=== PATIENT | female | born 1980 | race Caucasian/White ===

== ENCOUNTER 2019-10-31 08:00 | Outpatient (CLI) | payer OTHER ==
[2019-10-31 21:17] LABS: TRICHOMONAS VAGINALIS DNA NEGATIVE (NEGATIVE)
== END 2019-10-31 23:59 | disposition home or self-care (01) ==
LOC: LAB.R 08:00
PROVIDERS: ATTEND Advanced Practice Midwife
DX: O09.529 Supervision of elderly multigravida, unspecified trimester (principal); Z3A.00 Weeks of gestation of pregnancy not specified
CPT/HCPCS: 87491; 87591; 87661; 87797

== ENCOUNTER 2019-12-02 09:50 | Inpatient (IN) | payer OTHER ==
[2019-12-02 10:38] LABS: RUPTURE OF MEMBRANES PLUS POSITIVE (NEGATIVE)
[2019-12-02] MEDS ORDERED: ONDANSETRON 4 MG/2 ML VIAL IVP PRN ×2 (11:03→19:04)
[2019-12-02] MEDS ORDERED: SODIUM CHLORIDE FLUSH 0.9% 10 ML SYRINGE IVP PRN (11:03)
[2019-12-02 12:28] LABS: BASOPHILS % (AUTO) 0.4 %; EOSINOPHILS # (AUTO) 0.1 10^3/uL (0.0-0.7); EOSINOPHILS % (AUTO) 0.7 %; HGB - HEMOGLOBIN 12.9 g/dL (12.0-16.0); LYMPHOCYTES # (AUTO) 1.7 10^3/uL (1.5-3.5); LYMPHOCYTES % (AUTO) 16.8 %; MEAN CORPUSCULAR HEMOGLOBIN 32.3 pg (27.0-31.0); MEAN CORPUSCULAR HGB CONC 33.7 g/dL (32.0-36.0); MEAN PLATELET VOLUME 9.9 fL (7.9-10.8); MONOCYTES # (AUTO) 0.7 10^3/uL (0.0-1.0); MONOCYTES % (AUTO) 6.7 %; NEUTROPHILS # (AUTO) 7.5 10^3/uL (1.5-6.6); NEUTROPHILS % (AUTO) 74.3 %; PLT - PLATELET COUNT 223 10^3/uL (130-450); RED BLOOD COUNT 3.99 10^6/uL (4.20-5.40); RED CELL DISTRIBUTION WIDTH 12.4 % (12.0-15.0); WHITE BLOOD COUNT 10.1 x10^3/uL (4.8-10.8)
--- NOTE | 2019-12-02 12:37 | PREOP HISTORY & PHYSICAL ---
DATE OF SERVICE: 12/02/2019 Physician: Beto Rivas MD IDENTIFICATION: The patient is a 39-year-old G3, P2 female whose EDC is 11/30/2019. This makes her 40 weeks and 2 days. CHIEF COMPLAINT: Vaginal fluid leak. HISTORY OF PRESENT ILLNESS: At 8 o'clock this morning, she developed a vaginal fluid leak, which ran down her legs. She presents for possibly rupture of membranes. She has been having contractions off and on over the last 3 or 4 days. These have come and then resolved. She notes good motion at this time. OBSTETRICAL HISTORY: Remarkable for some blood pressure elevations with her first child. However, she denies a history of preeclampsia. During this , because of the COVID virus, she was very anxious about doing her 50 gram Glucola and thus did not do this. She did do blood sugar tests at home, which she reports and reported on the chart as her fastings being normal, as well as 1-hour postprandials being in the 120s. Her blood pressures have all been within normal limits during this . LABORATORIES: The patient is noted to be A negative. Her is B negative. She is rubella immune. Her STI checks have all been negative. She is group B strep negative at this time. PAST MEDICAL HISTORY: Negative. PAST SURGICAL HISTORY: [place] teeth. ALLERGIES: NONE KNOWN. CURRENT MEDICATIONS 1. vitamins. 2. Iron. 3. Folic acid. HABITS: The patient denies use of alcohol, tobacco, street or addictive drugs. SOCIAL HISTORY: The patient is . She is a middle school spanish teacher, as well as her . She has currently been homebound with her family because of self- quarantine with the COVID virus. PHYSICAL EXAMINATION GENERAL: The patient is a well-developed, well-nourished, white female. She is somewhat anxious at this time. VITAL SIGNS: On admission, her blood pressure is 140/98, heart rate is 115, temperature is 37, and her respirations are 20, with 100% oxygenation. HEENT: Pupils are equal and round. Extraocular muscles are intact. Mouth is clear. Thyroid is not palpably enlarged. HEART: Regular rate and rhythm without murmurs. LUNGS: Lung elder are clear without rales or wheezes. BACK: No spinal or CVA tenderness. The patient is noted to have a history of being scoliotic. ABDOMEN: Gravid, measuring roughly 38 cm at this time. She has a nice reactive strip at this time. PELVIC: Done by the nurse showed her to be Nitrazine equivocal, but her FFN is positive. Her cervical examination was noted to be closed and long. DTRs are +1. IMPRESSION: A 39-year-old G3, P2 female at 40.2 weeks. She has spontaneously ruptured. Repeat BP was normal. PLAN: I have discussed the issues with cervical ripening. If labor does not ensue within the next hour, we will utilize Cervidil for cervical ripening. We will place an epidural as necessary. She does have a history of having a rapid labors. [facility] Labs were drawn. TD: 12/02/2019 12:04 JONATHAN
[2019-12-02 12:49] LABS: URIC ACID 3.8 mg/dL (2.6-7.2)
[2019-12-02 12:51] LABS: CREATININE,URINE 23.8 mg/dL; PROTEIN/CREATININE RATIO,URINE 1.6 (<=0.2)
[2019-12-02 12:53] LABS: CALCIUM 8.8 mg/dL (8.5-10.3); CREATININE 0.6 mg/dL (0.4-1.0)
[2019-12-02] MEDS ORDERED: miSOPROStoL 100 MCG TABLET BC PRN (14:00)
[2019-12-02] MEDS ORDERED: miSOPROStoL 100 MCG TABLET ONE (14:06)
--- NOTE | 2019-12-02 15:56 | PROVIDER PROGRESS NOTE ---
Labor Progress Note - Uterine Monitoring Uterine Monitoring Mode: positive: External toco Contraction Frequency (min/apart): irreguler Contraction Intensity: positive: Mild - Monitoring Monitor Mode: positive: External ultrasound Heart Rate Variability: positive: Moderate (6-25 bmp) Accelerations: positive: Present, 15x15 Decelerations: positive: None Strip Review: positive: Category I - Vaginal Exam Dilation (in cm): posterior Station: Ballotable - Labor Progress Note Labor Progress Note/Additional Text: may need repeat misioprostal
[2019-12-02] MEDS ORDERED: SODIUM CHLORIDE FLUSH 0.9% 10 ML SYRINGE IVP SCH (17:00)
[2019-12-02] MEDS: LACTATED RINGERS 1,000 ML IV SCH ×2 (17:30→21:59)
[2019-12-02] MEDS ORDERED: fentaNYL 100 MCG/2 ML VIAL IVP PRN (17:42)
[2019-12-02] MEDS ORDERED: ROPIVACAINE 0.2% 200 MG/100 ML BAG EP ONE (18:11)
--- NOTE | 2019-12-02 18:12 | ANESTHESIA ---
Pre-Anesthesia VS, & Labs - Diagnosis Active labor - Procedure vaginal delivery Vital Signs: Temp Pulse Resp BP Pulse Ox 37.2 C 115 H 20 140/98 H 100 12/02/19 11:07 12/02/19 10:00 12/02/19 10:00 12/02/19 10:00 12/02/19 10:00 Height 5 ft 9.5 in Weight (kg) 88.9 kg - NPO Other (Labor) - Is Patient ?: Yes - Lab Results Current Lab Results: Laboratory Tests 12/02/19 12:02: Sodium 132 L, Potassium 3.6, Chloride 100 L, Carbon Dioxide 22, Anion Gap 10.0, BUN 11, Creatinine 0.6, Estimated GFR (MDRD) 111, Glucose 116 H, Calcium 8.8 12/02/19 12:02: Uric Acid 3.8, AST 20 12/02/19 12:02: Lactate Dehydrogenase 123 12/02/19 12:02: WBC 10.1, RBC 3.99 L, Hgb 12.9, Hct 38.3, MCV 96.0, MCH 32.3 H, MCHC 33.7, RDW 12.4, Plt Count 223, MPV 9.9, Neut # (Auto) 7.5 H, Lymph # (Auto) 1.7, [place] # (Auto) 0.7, Eos # (Auto) 0.1, Baso # (Auto) 0.0, Absolute Nucleated RBC 0.00, Nucleated RBC % 0.0 Fish Bones: 12/02/19 12:02 12/02/19 12:02 Home Medications and Allergies Active Medications Fentanyl (Fentanyl) 50 mcg IVP Q1H PRN PRN Reason: PAIN Last Admin: 12/02/19 17:49 Dose: 50 mcg Lactated Ringer's (Lr) 1,000 mls @ 150 mls/hr IV .Q6H40M CHIKIS Misoprostol (Cytotec) 25 mcg BC Q4H PRN PRN Reason: NEEDED PER PROVIDER ORDERS Stop: 12/03/19 13:59 Last Admin: 12/02/19 14:11 Dose: 25 mcg Ondansetron HCl (Zofran Inj) 4 mg IVP Q4H PRN PRN Reason: Nausea / Vomiting Last Admin: 12/02/19 15:46 Dose: 4 mg Sodium Chloride (Normal Saline Flush 0.9%) 10 ml IVP PRN PRN PRN Reason: NEEDED PER PROVIDER ORDERS Sodium Chloride (Normal Saline Flush 0.9%) 10 ml IVP 0100,0900,1700 CHIKIS PNV Allergies/Adverse Reactions: Allergies Allergy/AdvReac Type Severity Reaction Status Date / Time No Known Drug Allergies Allergy Verified 12/02/19 11:10 Anes History & Medical History - Anesthetic History Family history of Anesthesia Complications: Denies Family history of Malignant Hyperthermia: Denies - Medical History Cardiovascular: reports: None Pulmonary: reports: None Gastrointestinal: reports: GERD (during ) Urinary: reports: None Neuro: reports: None Musculoskeletal: reports: Scoliosis Endocrine/Autoimmune: reports: None Blood Disorders: reports: None Smoking Status: Never smoker Psychosocial: reports: Anxiety Exam General: Alert, Oriented x3, Cooperative, No acute distress Dental: WNL Mouth Openin Fingerbreadth Neck Mobility: Normal Mallampati classification: III Thyromental Distance: 4-6 cm Mental/Cognitive Status: Alert/Oriented X3, Normal for patient Plan Anesthesia Type: Epidural Consent for Procedure(s) Verified and Reviewed: Yes Code Status: Attempt Resuscitation ASA classification: 2-Mild systemic disease Is this case an emergency?: No
[2019-12-02] MEDS ORDERED: NALBUPHINE 10 MG/ML AMP IVP PRN (19:04)
[2019-12-02] MEDS ORDERED: NALOXONE 0.4 MG/ML VIAL IVP PRN (19:04)
[2019-12-02] MEDS ORDERED: ePHEDrine 50 MG/ML VIAL IVP PRN (19:04)
[2019-12-02] MEDS ORDERED: ROPIVACAINE 0.2% 200 MG/100 ML BAG EP PRN (19:04)
[2019-12-02] MEDS ORDERED: OXYTOCIN/SODIUM CHLORIDE 500 ML IV ONE (21:50)
--- NOTE | 2019-12-02 22:43 | PROVIDER PROGRESS NOTE ---
Labor Progress Note - Uterine Monitoring Contraction Frequency (min/apart): 2-3 min Contraction Intensity: positive: Moderate to strong - Monitoring Monitor Mode: positive: External ultrasound Heart Rate Baseline: 140 Heart Rate Variability: positive: Moderate (6-25 bmp) Accelerations: positive: Present, 15x15 Decelerations: positive: None Strip Review: positive: Category I - Vaginal Exam Dilation (in cm): 4 Effacement (%): 80% Station: -3 Cervical Position: Posterior - Labor Progress Note Labor Progress Note/Additional Text: pt is very anxious. slow progress. 14 hours ruptured. Start pitocin
[2019-12-02] MEDS ORDERED: OXYTOCIN/SODIUM CHLORIDE 500 ML IV SCH (23:00)
[2019-12-02] MEDS ORDERED: fentaNYL 100 MCG/2 ML VIAL ONE (23:17)
[2019-12-02] MEDS ORDERED: SODIUM CHLORIDE 0.9% 10 ML ONE (23:17)
--- NOTE | 2019-12-02 23:32 | ANESTHESIA PROCEDURE NOTE ---
Anesthesia Epidural Template - Patient Report Patient Reports: positive: Other (patient reports pain with contractions in her vagina. Pain is controlled everywhere else.) - Other Comments Other Comments: Epidural dosed with 100mcg fentanyl with 8ml of PFNS. After bolus, patient was checked and 9.5cm. Patient reports improvement of pain, but increased pressure.
[2019-12-02] MEDS ORDERED: LIDOCAINE-MPF 1% 30 ML VIAL ONE (23:57)
[2019-12-03] MEDS ORDERED: ONDANSETRON ODT 4 MG TABLET TL PRN (00:27)
[2019-12-03] MEDS ORDERED: WITCH HAZEL/GLYCERIN 1 PAD TOP PRN (00:27)
[2019-12-03] MEDS ORDERED: HYDROCORTISONE 1% CREAM 28 GM TUBE PR PRN (00:27)
[2019-12-03] MEDS ORDERED: diphenhydrAMINE 25 MG CAPSULE PO PRN (00:27)
--- NOTE | 2019-12-03 00:32 | DELIVERY NOTE ---
Delivery Note - Labor Labor: positive: Other (Misoprosto 25 microgramsl) - Delivery Method Delivery Method: positive: Spontaneous vaginal delivery - Cervical Ripening Method Cervical Ripening Method: positive: Misoprostil - Presentation Presentation: positive: Vertex, Compound (right hand), SONALI - left occiput anterior - Nuchal Cord Nuchal Cord: positive: None - Anesthetic Anesthetic Type: Anesthetic: positive: Lidocaine - 1% plain Volume: positive: Other (9 ml) - Amniotic Fluid Description Amniotic Fluid Description: positive: Clear - Episiotomy Type Episiotomy Type: positive: None - Laceration Laceration: positive: 2nd degree, Perineal - Suture Suture Type: positive: Vicryl Suture Size: positive: 3-0 - Delivery Outcome Delivery Outcome: positive: Livebirth (female apgars 8/9) - [place] : positive: Placed in direct skin contact with mother, Bulb syringe, Stimulated sex: positive: Female - Cord Cord: positive: 3 vessels - Placenta Placenta: positive: Intact, Spontaneous - Estimated Blood Loss Estimated Blood Loss (in cc): 200 - Post Delivery Events Post Delivery Events: positive: No post delivery events - Delivery Comments (Free Text/Narrative) Delivery Comments (Free Text/Narrative): Patient presented to labor and delivery about 10:00 this morning with a history of having noticed fluid leak at 8. This is clear. Upon examination she was noted to have minimal fluid in the vagina however this was ROM plus positive. With time the rupture became more more obvious. She was somewhat apprehensive. Because her cervix was unfavorable felt to be long closed and very posterior she received 25 mcg of misoprostol. She developed contractions which becoming more and more painful with time. She requested an epidural which was placed with excellent results. She reached complete at 2330 and following a 19-minute second stage she delivered at 2349 a live female Apgars 8/9 left occiput anterior with a right hand component. The placenta soon followed at 2355 was inspected and felt to be intact at time of delivery she suffered a second-degree perineal laceration. This repaired with 3-0 Vicryl in the standard fashion. Both mother and infant tolerated delivery well. Estimated blood loss was 200 cc.
[2019-12-03] MEDS ORDERED: LACTATED RINGERS 1,000 ML IV SCH (01:00)
[2019-12-03] MEDS ORDERED: SIMETHICONE CHEW 80 MG TABLET PO SCH (06:00)
[2019-12-03] MEDS: ACETAMINOPHEN 500 MG TABLET PO SCH ×3 (06:41→23:56)
[2019-12-03] MEDS: IBUPROFEN 600 MG TABLET PO SCH ×2 (06:42→12:39)
[2019-12-03] MEDS ORDERED: SODIUM CHLORIDE 0.9% 500 ML ONE (07:46)
[2019-12-03] MEDS: oxyCODONE 5 MG TABLET PO PRN ×3 (09:47→23:57)
[2019-12-03] MEDS: DOCUSATE SODIUM 100 MG CAPSULE PO SCH (09:47)
--- NOTE | 2019-12-03 11:15 | PROVIDER PROGRESS NOTE ---
Subjective - Prog Note Date Prog Note Date: 12/03/19 Prog Note Time: 11:12 - Subjective Pt reports feeling: Improved (Pain 07/07. breast feeding.) Objective - Vital Signs/Intake & Output Reviewed Vital Signs: Yes Vital Signs: Vital Signs x48h Temp Pulse Resp BP 12/03/19 09:30 36.9 C 103 H 18 129/84 H Intake & Output: Intake & Output 11/30/19 12/01/19 12/02/19 12/03/19 23:59 23:59 23:59 23:59 Intake Total 672.5 1750 Output Total 1550 Balance 672.5 200 - Objective General Appearance: positive: No acute distress, Alert Abdomen: positive: Non-tender, Mass (U-1) Extremities: negative: Calf tenderness, Radha's sign/cords Neurologic/Psychiatric: positive: Oriented x3 - Lab Results Fish Bones: 12/02/19 12:02 12/02/19 12:02 Other Labs: Lab Results x24hrs 12/02/19 12/02/19 12/02/19 Range/Units 12:02 12:02 12:02 WBC (4.8-10.8) x10^3/uL RBC (4.20-5.40) 10^6/uL Hgb (12.0-16.0) g/dL Hct (37.0-47.0) % MCV (81.0-99.0) fL MCH (27.0-31.0) pg MCHC (32.0-36.0) g/dL RDW (12.0-15.0) % Plt Count (130-450) 10^3/uL MPV (7.9-10.8) fL Neut # (Auto) (1.5-6.6) 10^3/uL Lymph # (Auto) (1.5-3.5) 10^3/uL [place] # (Auto) (0.0-1.0) 10^3/uL Eos # (Auto) (0.0-0.7) 10^3/uL Baso # (Auto) (0.0-0.1) 10^3/uL Absolute Nucleated RBC x10^3/uL Nucleated RBC % /100WBC Sodium 132 L (135-145) mmol/L Potassium 3.6 (3.5-5.0) mmol/L Chloride 100 L (101-111) mmol/L Carbon Dioxide 22 (21-32) mmol/L Anion Gap 10.0 (6-13) BUN 11 (6-20) mg/dL Creatinine 0.6 (0.4-1.0) mg/dL Estimated GFR (MDRD) 111 (>89) Glucose 116 H (70-100) mg/dL Uric Acid 3.8 (2.6-7.2) mg/dL Calcium 8.8 (8.5-10.3) mg/dL AST 20 (10-42) IU/L Lactate Dehydrogenase (91-225) IU/L Urine Creatinine 23.8 mg/dL Ur Total Protein Timed 38 mg/dL Protein/Creatinin Ratio 1.6 H (<=0.2) 12/02/19 12/02/19 Range/Units 12:02 12:02 WBC 10.1 (4.8-10.8) x10^3/uL RBC 3.99 L (4.20-5.40) 10^6/uL Hgb 12.9 (12.0-16.0) g/dL Hct 38.3 (37.0-47.0) % MCV 96.0 (81.0-99.0) fL MCH 32.3 H (27.0-31.0) pg MCHC 33.7 (32.0-36.0) g/dL RDW 12.4 (12.0-15.0) % Plt Count 223 (130-450) 10^3/uL MPV 9.9 (7.9-10.8) fL Neut # (Auto) 7.5 H (1.5-6.6) 10^3/uL Lymph # (Auto) 1.7 (1.5-3.5) 10^3/uL Cross # (Auto) 0.7 (0.0-1.0) 10^3/uL Eos # (Auto) 0.1 (0.0-0.7) 10^3/uL Baso # (Auto) 0.0 (0.0-0.1) 10^3/uL Absolute Nucleated RBC 0.00 x10^3/uL Nucleated RBC % 0.0 /100WBC Sodium (135-145) mmol/L Potassium (3.5-5.0) mmol/L Chloride (101-111) mmol/L Carbon Dioxide (21-32) mmol/L Anion Gap (6-13) BUN (6-20) mg/dL Creatinine (0.4-1.0) mg/dL Estimated GFR (MDRD) (>89) Glucose (70-100) mg/dL Uric Acid (2.6-7.2) mg/dL Calcium (8.5-10.3) mg/dL AST (10-42) IU/L Lactate Dehydrogenase 123 (91-225) IU/L Urine Creatinine mg/dL Ur Total Protein Timed mg/dL Protein/Creatinin Ratio (<=0.2) Assessment/Plan - Problem List (1) (spontaneous vaginal delivery) Impression: excellent progress. late delivery.
[2019-12-04 05:52] LABS: BASOPHILS # (AUTO) 0.1 10^3/uL (0.0-0.1); BASOPHILS % (AUTO) 0.4 %; EOSINOPHILS # (AUTO) 0.3 10^3/uL (0.0-0.7); EOSINOPHILS % (AUTO) 2.7 %; HGB - HEMOGLOBIN 11.5 g/dL (12.0-16.0); LYMPHOCYTES # (AUTO) 2.8 10^3/uL (1.5-3.5); LYMPHOCYTES % (AUTO) 21.6 %; MEAN CORPUSCULAR HEMOGLOBIN 32.7 pg (27.0-31.0); MEAN CORPUSCULAR HGB CONC 33.6 g/dL (32.0-36.0); MEAN CORPUSCULAR VOLUME 97.2 fL (81.0-99.0); MEAN PLATELET VOLUME 9.4 fL (7.9-10.8); MONOCYTES # (AUTO) 1.1 10^3/uL (0.0-1.0); MONOCYTES % (AUTO) 8.6 %; NEUTROPHILS # (AUTO) 8.4 10^3/uL (1.5-6.6); NEUTROPHILS % (AUTO) 65.8 %; PLT - PLATELET COUNT 204 10^3/uL (130-450); RED BLOOD COUNT 3.52 10^6/uL (4.20-5.40); RED CELL DISTRIBUTION WIDTH 12.7 % (12.0-15.0); WHITE BLOOD COUNT 12.8 x10^3/uL (4.8-10.8)
[2019-12-04 06:02] LABS: CREATININE 0.5 mg/dL (0.4-1.0); URIC ACID 4.2 mg/dL (2.6-7.2)
[2019-12-04 06:11] LABS: CREATININE,URINE 18.2 mg/dL; PROTEIN/CREATININE RATIO,URINE 0.6 (<=0.2)
[2019-12-04] MEDS: DOCUSATE SODIUM 100 MG CAPSULE PO SCH ×2 (07:41→09:58)
[2019-12-04] MEDS: ACETAMINOPHEN 500 MG TABLET PO SCH ×2 (07:42→09:58)
[2019-12-04] MEDS: oxyCODONE 5 MG TABLET PO PRN (07:42)
[2019-12-04 08:28] VITALS: BP 138/76
--- NOTE | 2019-12-04 10:19 | PROVIDER PROGRESS NOTE ---
Subjective - Prog Note Date Prog Note Date: 12/04/19 Prog Note Time: 10:17 - Subjective Pt reports feeling: Improved (Pt had RESENDIZ last PM resolved with tylenol and hyration. Pt feels well today. notes edemal resolving. Breast feeding. baby with increased bili.) Objective - Vital Signs/Intake & Output Reviewed Vital Signs: Yes Vital Signs: Vital Signs x48h Temp Pulse Resp BP Pulse Ox 12/04/19 08:27 36.6 C 102 H 19 138/76 H 98 12/04/19 05:24 36.9 C 81 16 147/89 H 99 Intake & Output: Intake & Output 12/01/19 12/02/19 12/03/19 12/04/19 23:59 23:59 23:59 23:59 Intake Total 672.5 1750 Output Total 1550 Balance 672.5 200 - Objective General Appearance: positive: No acute distress, Alert Respiratory: positive: Chest non-tender, No respiratory distress, Breath sounds nml Cardiovascular: positive: Regular rate & rhythm, No murmur, No gallop Abdomen: positive: Non-tender, Mass (U-2) Extremities: negative: No pedal edema, Calf tenderness, Radha's sign/cords - Lab Results Fish Bones: 12/04/19 05:44 12/04/19 05:44 Other Labs: Lab Results x24hrs 12/04/19 12/04/19 12/04/19 Range/Units 05:55 05:44 05:44 WBC (4.8-10.8) x10^3/uL RBC (4.20-5.40) 10^6/uL Hgb (12.0-16.0) g/dL Hct (37.0-47.0) % MCV (81.0-99.0) fL MCH (27.0-31.0) pg MCHC (32.0-36.0) g/dL RDW (12.0-15.0) % Plt Count (130-450) 10^3/uL MPV (7.9-10.8) fL Neut # (Auto) (1.5-6.6) 10^3/uL Lymph # (Auto) (1.5-3.5) 10^3/uL [place] # (Auto) (0.0-1.0) 10^3/uL Eos # (Auto) (0.0-0.7) 10^3/uL Baso # (Auto) (0.0-0.1) 10^3/uL Absolute Nucleated RBC x10^3/uL Nucleated RBC % /100WBC Fibrinogen 592 H (220-496) mg/dL Creatinine 0.5 (0.4-1.0) mg/dL Estimated GFR (MDRD) 137 (>89) Uric Acid 4.2 (2.6-7.2) mg/dL AST 27 (10-42) IU/L ALT 17 (10-60) IU/L Lactate Dehydrogenase (91-225) IU/L Urine Creatinine 18.2 mg/dL Ur Total Protein Timed 11 mg/dL Protein/Creatinin Ratio 0.6 H (<=0.2) 12/04/19 12/04/19 Range/Units 05:44 05:44 WBC 12.8 H (4.8-10.8) x10^3/uL RBC 3.52 L (4.20-5.40) 10^6/uL Hgb 11.5 L (12.0-16.0) g/dL Hct 34.2 L (37.0-47.0) % MCV 97.2 (81.0-99.0) fL MCH 32.7 H (27.0-31.0) pg MCHC 33.6 (32.0-36.0) g/dL RDW 12.7 (12.0-15.0) % Plt Count 204 (130-450) 10^3/uL MPV 9.4 (7.9-10.8) fL Neut # (Auto) 8.4 H (1.5-6.6) 10^3/uL Lymph # (Auto) 2.8 (1.5-3.5) 10^3/uL [place] # (Auto) 1.1 H (0.0-1.0) 10^3/uL Eos # (Auto) 0.3 (0.0-0.7) 10^3/uL Baso # (Auto) 0.1 (0.0-0.1) 10^3/uL Absolute Nucleated RBC 0.00 x10^3/uL Nucleated RBC % 0.0 /100WBC Fibrinogen (220-496) mg/dL Creatinine (0.4-1.0) mg/dL Estimated GFR (MDRD) (>89) Uric Acid (2.6-7.2) mg/dL AST (10-42) IU/L ALT (10-60) IU/L Lactate Dehydrogenase 218 (91-225) IU/L Urine Creatinine mg/dL Ur Total Protein Timed mg/dL Protein/Creatinin Ratio (<=0.2) Assessment/Plan - Problem List (1) (spontaneous vaginal delivery) Impression: 1. PPD #2 excellent progress 2. Possible mild PreE BP not treatable at this time. P/C ratio improving. Pt is very anxious difficult taking BP with automatic cuff. Plan home but MUST take BP at home and record. come back tomorrow and bring record of home BP with her. Discharge Medications: Oxycodone 5 mg # 5 Colace 100 mg OTC Tylenol OTC. STOP Motrin. BP check tomorrow adn phone visit one week. Condoms adn vasectomy.
--- NOTE | 2019-12-04 13:45 | Labor Flowsheet ---
Labor Flowsheet Datetime Report Generated by CPN: 12/04/2019 13:45 Datetime: 12/04/2019 05:17 VITAL SIGNS NBP Sys/Sumi/Mean (mmHg): 147 : 89 : 104 Pulse: 102 Datetime: 12/03/2019 18:14 SpO2 (%): 99 Datetime: 12/02/2019 23:50 Stage of : Recovery Datetime: 12/02/2019 23:49 Membranes Ruptured Date/Time: 12/02/2019 08:00 Membranes Rupture Method: Spontaneous Amniotic Fluid Color: Clear Amniotic Fluid Amount: Small Amniotic Fluid Odor: Normal Stage 2 Comments: Head delivered Datetime: 12/02/2019 23:48 STAGE 2 Pushing: Urge to Push Pushing Position: Pushing with Contractions Datetime: 12/02/2019 23:46 FHR Baseline Rate : 140 Decelerations: Variable Datetime: 12/02/2019 23:45 Comments: up in stirrups Datetime: 12/02/2019 23:40 Communication Comments: Dr. Giem here Datetime: 12/02/2019 23:30 LaborFlag: Labor Datetime: 12/02/2019 23:22 VAGINAL EXAM Dilatation (cm): 9.5 Station: 2 Exam by: Ritchie COMMUNICATION Communication: Call/Page Placed to Provider Provider Notified (Name): DrJose Ramon Giem Notification Reason: Status Update Datetime: 12/02/2019 23:00 UTERINE ACTIVITY Monitor Mode: External Frequency (min): 2 Quality: Strong Duration (sec): 40 Resting Tone (Palpate): Relaxed ASSESSMENT A Monitor Mode: External US Variability: Moderate 6-25 bpm Category: Category I Oxygen Method: Room Air Anesthesia Level Check: T10- Umbilicus Anesthesia Comments: Anesthesia present for pain control Datetime: 12/02/2019 22:52 Monitor Interventions for UA: [place] Adjusted Monitor Interventions for FHR: Ultrasound Adjusted Patient Position/Activity: Left Lateral Datetime: 12/02/2019 22:45 PAIN Pain Scale: 8 Pain Presence: Intermittent Pain Type: Contraction Pain Location: Abdomen Pain Goal: 2 Pain Relief Measures: Epidural Given Datetime: 12/02/2019 22:39 Effacement (%): 80 Vaginal Bleeding: None Cervix, Consistency: Soft Cervix, Position: Midposition Datetime: 12/02/2019 22:17 Provider Reviewed Strip: Yes Datetime: 12/02/2019 22:00 Accelerations: 15X15 Datetime: 12/02/2019 21:30 FHR Baseline Changes: No Baseline Change Datetime: 12/02/2019 20:30 Temperature (C): 36.8 Datetime: 12/02/2019 19:59 Pattern: Normal: <= 5 Contractions in 10 Minutes MATERNAL ASSESSMENT Level of Consciousness: Alert DTR's/Clonus: DTRs 2+; No Clonus Headache: Denies Nausea/Vomiting: Denies RUQ Epigastric Pain: Denies TEACHING Instructional Method: Verbal Plan of Care: Plan of Care Discussed Related: Maternal Physical Changes; Maternal Emotional Changes Datetime: 12/02/2019 19:10 I/O Interventions: Bedpan Given Datetime: 12/02/2019 19:01 Epidural Procedure Other: Pump Started Datetime: 12/02/2019 18:54 ANESTHESIA Anesthesia Plans: Epidural Epidural Procedure: Test Dose Datetime: 12/02/2019 18:36 PROCEDURE TIME OUT Procedure Type: 1835 Procedure Verify: Correct Patient Identity; Correct Side and Site are Marked; Accurate Procedure Co nsent Form; Agreement on Procedure to be Done; Correct Patient Position; Safety Precautions Based on Patient History or Medication Use Epidural Positioning: Sitting Datetime: 12/02/2019 17:49 MEDICATIONS Analgesics/Sedatives: Fentanyl (mcg) @ 50 Datetime: 12/02/2019 17:29 PATIENT CARE IV/Blood Work: IV Bolus Started; IV Bolus Given ml @ 500 Datetime: 12/02/2019 17:15 Contraction Comments: patient states ctx's stronger and feels more regular, considering epidural so on Datetime: 12/02/2019 15:10 Vaginal Exam Comments: ballotable, unable to reach cervix, pt very tense during exam. Datetime: 12/02/2019 14:11 Cervical Ripening Agents: Cytotec @
--- NOTE | 2019-12-06 17:37 | DISCHARGE SUMMARY ---
Physician: Beto Rivas MD DATE OF ADMISSION: 12/02/2019 DATE OF DISCHARGE: 12/04/2019 ADMITTING DIAGNOSES: 1. 40 weeks and 2 days gestation. 2. Mild preeclampsia. 3. Spontaneous rupture of membranes. DISCHARGE DIAGNOSES: 1. 40 weeks and 2 days gestation. 2. Mild preeclampsia. 3. Spontaneous rupture of membranes. PROCEDURES: 1. Cervical ripening with misoprostol. 2. Epidural anesthesia. 3. Spontaneous vaginal delivery. 4. Repair of second-degree laceration. PRESENTING HISTORY: Patient is a 40-year-old G3, P2 female whose due date was 11/30/2019. She presented at 40 weeks and 2 days. At time of admission, she came to labor and delivery and complained of leaking fluid down her leg, but no fluid was noted in the vagina; however, a ROM Plus was positive for rupture of membranes, and throughout time, her ruptured membranes became more obvious. Her history was that of anxiety secondary to coronavirus and therefore was not seen in the clinic for the last month or so. She did her own blood pressure monitoring as well as sugar testing. She declined coming in and having a 50 gram Glucola and thus was given a glucometer to check her blood sugars. She reported these as normal, but was unable to give actual numbers. On admission, her examination showed her cervix to be Nitrazine equivocal. The cervix was long and closed. LABORATORIES: Because of an admission elevated blood pressure, she had PAH labs drawn. Her white count on admission was 10.1, hemoglobin was 12.9, platelets were 223. Her glucose was 116. Her protein creatinine was 1.6. However, this was contaminated with amniotic fluid. Uric acid was 3.8 and creatinine of 0.6. ROM Plus was positive. On the , she had repeat labs drawn. Because of some blood pressures running occasionally 140s/80s. Her platelets had remained stable at 204. Her creatinine was 0.5. Her uric acid was 4.2. Her protein creatinine ratio had fallen to 0.6. HOSPITAL COURSE: The patient admitted. Declined early active management. So at roughly noon, it was decided to use misoprostol all for cervical ripening 25 mg used buccally as we were concerned about hyperstimulation. She progressed to roughly 4 cm, had an epidural placed. The plan was to start Pitocin; however, she went rapidly from 4 cm to complete. She pushed through 2 contractions at which time she delivered a live female infant, Apgars 8 and 9. At time of delivery, there was a right hand compound presentation. She suffered a second- degree laceration, which was repaired. , she did well. She had problems with a headache, which responded to Tylenol and fluids. Her vital signs, systolics ranged from 134-147. Diastolics never exceeded 90. She was discharged home with instructions to followup the following day for blood pressure check when she brought her in. She was told this was very important. She was to take her own home medication of Motrin, Tylenol and Colace. We discussed the issues of contraception. Her is supposed to get a vasectomy. In the meantime, she was told that is not adequate contraception. TD: 12/06/2019 16:30 JONATHAN
== END 2019-12-04 13:00 | disposition home or self-care (01) | DRG 807 ==
LOC: WFO 09:50 → FBP 09:57 → WFO 11:02 → FBP 11:03
PROVIDERS: ADMIT Obstetrics & Gynecology; ATTEND Obstetrics & Gynecology
PROC: 10E0XZZ Delivery of Products of Conception, External Approach (ICD-10-PCS; principal; 2019-12-02)
PROC: 0KQM0ZZ Repair Perineum Muscle, Open Approach (ICD-10-PCS; 2019-12-02)
DX: O14.04 Mild to moderate pre-eclampsia, complicating childbirth (principal); Z37.0 Single live birth; O70.1 Second degree perineal laceration during delivery; O32.6XX0 Maternal care for compound presentation, not applicable or unspecified; O42.02 Full-term premature rupture of membranes, onset of labor within 24 hours of rupture; O90.89 Other complications of the puerperium, not elsewhere classified; R51 Headache; Z3A.40 40 weeks gestation of pregnancy
CPT/HCPCS: 36415; 80048; 82565; 82570; 83615; 84112; 84156; 84450; 84460; 84550; 85025; 85384; 99212; A9270; J7120; 88307

== ENCOUNTER 2019-12-05 16:23 | Outpatient (CLI) | payer OTHER ==
[2019-12-05 17:31] VITALS: BP 141/75
--- NOTE | 2019-12-05 18:02 | Labor Flowsheet ---
Labor Flowsheet Datetime Report Generated by CPN: 12/05/2019 18:02 Datetime: 12/05/2019 17:28 VITAL SIGNS NBP Sys/Sumi/Mean (mmHg): 141 : 75 : 99 Pulse: 95 Datetime: 12/03/2019 18:14 SpO2 (%): 99 Datetime: 12/02/2019 23:50 Stage of : Recovery Datetime: 12/02/2019 23:49 Membranes Ruptured Date/Time: 12/02/2019 08:00 Membranes Rupture Method: Spontaneous Amniotic Fluid Color: Clear Amniotic Fluid Amount: Small Amniotic Fluid Odor: Normal Stage 2 Comments: Head delivered Datetime: 12/02/2019 23:48 STAGE 2 Pushing: Urge to Push Pushing Position: Pushing with Contractions Datetime: 12/02/2019 23:46 FHR Baseline Rate : 140 Decelerations: Variable Datetime: 12/02/2019 23:45 Comments: up in stirrups Datetime: 12/02/2019 23:40 Communication Comments: Dr. Giem here Datetime: 12/02/2019 23:30 LaborFlag: Labor Datetime: 12/02/2019 23:22 VAGINAL EXAM Dilatation (cm): 9.5 Station: 2 Exam by: Ritchie COMMUNICATION Communication: Call/Page Placed to Provider Provider Notified (Name): DrJose Ramon Giem Notification Reason: Status Update Datetime: 12/02/2019 23:00 UTERINE ACTIVITY Monitor Mode: External Frequency (min): 2 Quality: Strong Duration (sec): 40 Resting Tone (Palpate): Relaxed ASSESSMENT A Monitor Mode: External US Variability: Moderate 6-25 bpm Category: Category I Oxygen Method: Room Air Anesthesia Level Check: T10- Umbilicus Anesthesia Comments: Anesthesia present for pain control Datetime: 12/02/2019 22:52 Monitor Interventions for UA: [place] Adjusted Monitor Interventions for FHR: Ultrasound Adjusted Patient Position/Activity: Left Lateral Datetime: 12/02/2019 22:45 PAIN Pain Scale: 8 Pain Presence: Intermittent Pain Type: Contraction Pain Location: Abdomen Pain Goal: 2 Pain Relief Measures: Epidural Given Datetime: 12/02/2019 22:39 Effacement (%): 80 Vaginal Bleeding: None Cervix, Consistency: Soft Cervix, Position: Midposition Datetime: 12/02/2019 22:17 Provider Reviewed Strip: Yes Datetime: 12/02/2019 22:00 Accelerations: 15X15 Datetime: 12/02/2019 21:30 FHR Baseline Changes: No Baseline Change Datetime: 12/02/2019 20:30 Temperature (C): 36.8 Datetime: 12/02/2019 19:59 Pattern: Normal: <= 5 Contractions in 10 Minutes MATERNAL ASSESSMENT Level of Consciousness: Alert DTR's/Clonus: DTRs 2+; No Clonus Headache: Denies Nausea/Vomiting: Denies RUQ Epigastric Pain: Denies TEACHING Instructional Method: Verbal Plan of Care: Plan of Care Discussed Related: Maternal Physical Changes; Maternal Emotional Changes Datetime: 12/02/2019 19:10 I/O Interventions: Bedpan Given Datetime: 12/02/2019 19:01 Epidural Procedure Other: Pump Started Datetime: 12/02/2019 18:54 ANESTHESIA Anesthesia Plans: Epidural Epidural Procedure: Test Dose Datetime: 12/02/2019 18:36 PROCEDURE TIME OUT Procedure Type: 1835 Procedure Verify: Correct Patient Identity; Correct Side and Site are Marked; Accurate Procedure Co nsent Form; Agreement on Procedure to be Done; Correct Patient Position; Safety Precautions Based on Patient History or Medication Use Epidural Positioning: Sitting Datetime: 12/02/2019 17:49 MEDICATIONS Analgesics/Sedatives: Fentanyl (mcg) @ 50 Datetime: 12/02/2019 17:29 PATIENT CARE IV/Blood Work: IV Bolus Started; IV Bolus Given ml @ 500 Datetime: 12/02/2019 17:15 Contraction Comments: patient states ctx's stronger and feels more regular, considering epidural so on Datetime: 12/02/2019 15:10 Vaginal Exam Comments: ballotable, unable to reach cervix, pt very tense during exam. Datetime: 12/02/2019 14:11 Cervical Ripening Agents: Cytotec @
== END 2019-12-05 17:50 | disposition home or self-care (01) ==
LOC: WFO 16:23 → FBP 16:29 → WFO 17:50
PROVIDERS: ATTEND Obstetrics & Gynecology
DX: Z76.89 Persons encountering health services in other specified circumstances (principal)